=== PATIENT | female | born 1995 | race Caucasian/White ===

== ENCOUNTER 2021-06-17 04:35 | Emergency (ER) | payer SELFPAY ==
[~2021-06-17] VITALS: Ht 157.5 cm; Wt 45.0 kg
[2021-06-17] MEDS ORDERED: KETOROLAC 30MG/ML VIAL IV STA (06:44)
[2021-06-17] MEDS ORDERED: SODIUM CHLORIDE 0.9% 1,000 ML IV ONE (06:45)
[2021-06-17] MEDS ORDERED: METOCLOPRAMIDE HCL 10MG/2ML VIAL IV ONE (06:45)
[2021-06-17 07:24] LABS: BASOPHILS % 0.5 % (0.0-2.0); HEMOGLOBIN. 13.6 g/dL (12.0-16.0); LYMPHOCYTES % 24.5 % (20.0-50.0); MEAN CORPUSCULAR HEMOGLOBIN 29.4 pg (28.0-32.0); MEAN CORPUSCULAR VOLUME 86.5 fL (81.0-99.0); MEAN PLATELET VOLUME 8.8 fl (7.4-10.4); PLATELET 255 x1000/uL (130-400); RED BLOOD CELL COUNT 4.62 mill/uL (4.2-5.4); RED CELL DISTRIBUTION WIDTH 13.5 % (11.6-14.6)
[2021-06-17 07:30] VITALS: BP 110/74
[2021-06-17 07:31] LABS: CHLORIDE 109 mEq/L (98-107)
== END 2021-06-17 09:31 | disposition home or self-care (01) ==
LOC: EDBD 04:35 → ER 05:23
DX: G43.909 Migraine, unspecified, not intractable, without status migrainosus (principal); R07.89 Other chest pain
CPT/HCPCS: 36415; 71045; 80053; 83880; 84484; 85025; 93005; 96361; 96374; 96375; 99285; J1885; J2765; J7030